=== PATIENT | female | born 1935 | race Caucasian/White ===

== ENCOUNTER 2017-01-11 20:22 | Emergency (ER) | payer OTHER, MEDICARE ==
[~2017-01-11 20:22] MED LIST: APAP650 PO; ASPIR 8181 MG PO; B-12 DOTS500 MCG PO; BYSTOLIC2.5 MG PO; CANASA1000 MG RECTAL; CO Q-10100 M1 PO; DIOVAN 80 MG TA80 M1 PO; LEVOTHYROXINE500 MCG PO; LEXAPRO 10 MG T10 M1 PO; LIPITOR10 MG PO; MAGOX 400400 MG PO; OMEGA-31000 M1 PO; UNICOMPLEX M TA1 TA1 PO
== END 2017-01-11 21:35 | disposition left against medical advice (07) ==
LOC: ER 20:22
DX: Z53.21 Procedure and treatment not carried out due to patient leaving prior to being seen by health care provider (principal)

== ENCOUNTER 2017-08-06 02:36 | Emergency (ER) | payer OTHER, MEDICARE ==
[~2017-08-06] VITALS: Ht 167.6 cm; Wt 78.0 kg
[2017-08-06 05:00] LABS: BASOPHILS 0.4 % (0.0-2.0); EOSINOPHILS 0.2 % (0.0-3.0); HEMATOCRIT 39.1 % (37.0-47.0); HEMOGLOBIN 13.3 gm/dL (12.0-15.0); LYMPHOCYTES 16.8 % (24.0-44.0); MCH 28.9 pg (26.0-34.0); MCHC 34.1 g/dL (28.0-37.0); MCV 84.7 fL (80.0-100.0); MONOCYTES 8.3 % (1.0-8.0); PLATELET COUNT 150 thou/uL (150-400); POLYS 74.3 % (36.0-66.0); RBC 4.62 mil/uL (4.20-5.00); RDW 13.8 % (10.5-14.5)
[2017-08-06 05:09] LABS: CALCIUM 8.4 mg/dL (8.5-10.1); CREATININE 1.1 mg/dL (0.6-1.0); POTASSIUM 3.9 mmol/L (3.5-5.1)
[2017-08-06] MEDS ORDERED: LEVAQUIN 500 M500 M1 PO (05:22)
[2017-08-06 05:58] VITALS: BP 126/56
== END 2017-08-06 05:58 | disposition home or self-care (01) ==
LOC: ER 02:36
PROVIDERS: Emergency Medicine
DX: J18.8 Other pneumonia, unspecified organism (principal); J06.9 Acute upper respiratory infection, unspecified; K51.90 Ulcerative colitis, unspecified, without complications; E78.00 Pure hypercholesterolemia, unspecified; I10 Essential (primary) hypertension; Z88.8 Allergy status to other drugs, medicaments and biological substances; Z88.1 Allergy status to other antibiotic agents; Z88.5 Allergy status to narcotic agent; Z88.0 Allergy status to penicillin; Z88.2 Allergy status to sulfonamides; Z91.011 Allergy to milk products

== ENCOUNTER 2018-02-17 07:15 | Emergency (ER) | payer OTHER, MEDICARE ==
[~2018-02-17] VITALS: Ht 167.6 cm; Wt 76.2 kg
[~2018-02-17 07:15] MED LIST changes: +LEVAQUIN 500 M500 M1 PO
[2018-02-17] MEDS ORDERED: ELIMITE60 GM TOP (08:33)
[2018-02-17] MEDS ORDERED: CLEOCIN HCL150 MG PO (08:33)
== END 2018-02-17 09:11 | disposition home or self-care (01) ==
LOC: ER 07:15
DX: R21 Rash and other nonspecific skin eruption (principal); I10 Essential (primary) hypertension; E78.00 Pure hypercholesterolemia, unspecified; Z90.49 Acquired absence of other specified parts of digestive tract; Z88.1 Allergy status to other antibiotic agents; Z88.5 Allergy status to narcotic agent; Z88.0 Allergy status to penicillin; Z88.2 Allergy status to sulfonamides; Z88.8 Allergy status to other drugs, medicaments and biological substances

== ENCOUNTER 2018-07-09 08:15 | Emergency (ER) | payer OTHER, MEDICARE ==
[~2018-07-09] VITALS: Ht 167.6 cm; Wt 65.3 kg
[~2018-07-09 08:15] MED LIST changes: +CLEOCIN HCL150 MG PO; +ELIMITE60 GM TOP
[2018-07-09] MEDS ORDERED: MOBIC7.5 MG PO (11:32)
[2018-07-09 11:52] VITALS: BP 102/50
== END 2018-07-09 11:55 | disposition home or self-care (01) ==
LOC: ER 08:15
DX: S82.61XA Displaced fracture of lateral malleolus of right fibula, initial encounter for closed fracture (principal); I10 Essential (primary) hypertension; E78.00 Pure hypercholesterolemia, unspecified; Z88.8 Allergy status to other drugs, medicaments and biological substances; Z88.1 Allergy status to other antibiotic agents; Z88.5 Allergy status to narcotic agent; Z88.0 Allergy status to penicillin; Z88.2 Allergy status to sulfonamides; Z90.49 Acquired absence of other specified parts of digestive tract; Z90.710 Acquired absence of both cervix and uterus; W18.39XA Other fall on same level, initial encounter; Y92.009 Unspecified place in unspecified non-institutional (private) residence as the place of occurrence of the external cause; Y93.89 Activity, other specified; Y99.8 Other external cause status

== ENCOUNTER 2019-02-15 11:29 | Emergency (ER) | payer OTHER ==
[~2019-02-15] VITALS: Ht 167.6 cm; Wt 77.1 kg
[~2019-02-15 11:29] MED LIST changes: +MOBIC7.5 MG PO
[2019-02-15] MEDS ORDERED: ANTIVERT25 MG PO (12:59)
[2019-02-15 13:07] VITALS: BP 133/84
== END 2019-02-15 13:07 | disposition home or self-care (01) ==
LOC: ER 11:29
DX: H55.00 Unspecified nystagmus (principal); I10 Essential (primary) hypertension; E78.00 Pure hypercholesterolemia, unspecified; Z87.891 Personal history of nicotine dependence; Z88.8 Allergy status to other drugs, medicaments and biological substances; Z88.5 Allergy status to narcotic agent; Z88.0 Allergy status to penicillin; Z88.2 Allergy status to sulfonamides; Z90.49 Acquired absence of other specified parts of digestive tract; Z90.710 Acquired absence of both cervix and uterus

== ENCOUNTER 2020-05-06 14:18 | Inpatient (IN) | payer OTHER, MEDICARE ==
[~2020-05-06] VITALS: Ht 167.6 cm; Wt 78.1 kg
[2020-05-06 14:18] VITALS: BP 154/65
[~2020-05-06 14:18] MED LIST changes: +ANTIVERT25 MG PO
[2020-05-06 15:21] LABS: ABSOLUTE NEUTROPHILS 4.5 thou/uL (1.4-8.2); BASOPHILS 1.1 % (0.0-2.0); EOSINOPHILS 1.8 % (0.0-3.0); HEMATOCRIT 41.5 % (37.0-47.0); HEMOGLOBIN 14.1 gm/dL (12.0-15.0); LYMPHOCYTES 21.1 % (24.0-44.0); MCH 28.3 pg (26.0-34.0); MCHC 33.9 g/dL (28.0-37.0); MCV 83.4 fL (80.0-100.0); MONOCYTES 6.8 % (1.0-8.0); PLATELET COUNT 214 thou/uL (150-400); POLYS 69.2 % (36.0-66.0); RBC 4.98 mil/uL (4.20-5.00); WBC 6.4 thou/uL (4.0-11.0)
[2020-05-06 15:31] LABS: URINE BILIRUBIN NEGATIVE (Negative); URINE BLOOD 3+ (Negative); URINE CLARITY CLEAR; URINE COLOR YELLOW; URINE GLUCOSE-RANDOM* NEGATIVE (Negative); URINE KETONES NEGATIVE (Negative); URINE NITRITE-REFLEX NEGATIVE (Negative); URINE PROTEIN (DIPSTICK) NEGATIVE (Negative); URINE SPECIFIC GRAVITY 1.025 (1.005-1.035); URINE UROBILINOGEN 0.2 E.U./dl (0.2-1.0)
[2020-05-06 15:42] LABS: CALCIUM 8.6 mg/dL (8.5-10.1); CREATININE 1.1 mg/dL (0.6-1.0); POTASSIUM 3.7 mmol/L (3.5-5.1)
[2020-05-06 15:51] LABS: URINE LEUKOCYTES-REFLEX 1+ (Negative)
[2020-05-06 15:53] LABS: ALBUMIN 3.9 g/dL (3.4-5.0); MAGNESIUM 2.1 mg/dL (1.8-2.4); TOTAL BILIRUBIN 0.5 mg/dL (0.2-1.0); TOTAL PROTEIN 8.1 g/dL (6.4-8.2)
[2020-05-06 15:55] LABS: BACTERIA-REFLEX 1-9 Few /HPF (None Seen); CASTS None Seen /LPF (None Seen); CRYSTALS None Seen /LPF (None Seen); SQUAMOUS 0-3 Few /LPF (0-3); URINE RBC 3-10 Few /HPF (0-2); URINE WBC-REFLEX 6-15 Few /HPF (0-5)
--- NOTE | 2020-05-07 03:10 | NUR ---
SPOKE WITH LAB R/T COVID-19 RESULTS- LAB REPORTED "THEY ARE RUNNING RIGHT NOW IT STARTED AT 0045 AND SHOULD BE DONE SHORTLY."
--- NOTE | 2020-05-07 07:45 | EKG ---
[facility] [place] [address] ELECTROCARDIOGRAM REPORT Name: DESHAWN MONAHAN Room #: 170-8 ADM IN M.R.#: [id number] Admission: 05/06/20 Attend Phys: Zeb Moscoso DO Discharge: Date of : 35 Report #: [id number] THIS REPORT FOR: cc: Marty Cullen MD, Rene P. MD Lundgren, Craig H. MD [facility] ~ THIS REPORT FOR: //name// [facility] ED Test Date: 2020-05-06 Test Time: 15:33:58 Pat Name: DESHAWN MONAHAN Department: Room: 170 Gender: F Green Belt: ts : 1935 Requested By: Miguel Kirby Order Number: [id number] MD: Giorgio Rader Measurements Intervals [place] Rate: 66 P: 10 FL: 239 QRS: -20 QRSD: 109 T: 7 QT: 432 QTc: 453 Interpretive Statements Sinus rhythm Prolonged FL interval Borderline left axis deviation Compared to ECG 12/05/2017 21:12:09 Ventricular premature complex(es) no longer present Electronically Signed On 05-07-2020 7:45:48 CDT by Giorgio Rader [email or web address] <ELECTRONICALLY SIGNED> By: Giorgio Rader MD, FACC 05/07/20 0745 1533 [id number] Giorgio Rader MD, FAC /EPI
[2020-05-07 07:50] VITALS: BP 141/68
--- NOTE | 2020-05-07 16:27 | NUR ---
KAREN spoke with pt's son Miah. He does not have much information about his mother as she has estranged herself from her family; he has not been in her home in a long time. He said that now he has her car keys he is planning this weekend to go into her home and look for info concerning her financials. He said she mentioned years ago that she may get a LTC policy. He said he has been interested in placement for his mom for a few months, but she has refused. He will begin to look for a guardianship generating station mechanic as she does not have a DPOA. He said he also will be in [place] for a week or so as his and daughter live there; they are buying a home there. He said he will be available by phone. Pt does have another son named Pio who lives in [facility]. He may have DPOA. He is looking for the document. SW team will continue to follow pt during her stay on this unit.
--- NOTE | 2020-05-07 18:00 | NUR ---
Per Dr. Moscoso pt. is on High Fall Risk. patient was wobbily earlier in the AM. As day has progressed has gotten increasingly steadier on feet. She does not want to use the walker provided for her. Bed alarm placed on the bed, Yellow shirt, yellow socks provided. Two upper side rails raised. Red name on outside of door. Instructed to sit/lie down if felt dizzy or unsteady on feet. Compliant with med for UTI. Eating meals-self feeding.
[2020-05-07 18:15] VITALS: BP 134/69
--- NOTE | 2020-05-07 18:30 | NUR ---
Addendum: Admission Note: Allergies per Dr. Talley's notes: Atropine, Clarithromycin, Codeine, Diphenoxylate Sodium, Macrolide Antibiotics, Penicillins, Sulfa antibiotics. Home meds: Atorvastatin 10 mg. daily, ASA 81 mg. chewable-daily, Cyanocobalamin 500 mcg daily, Escitalopram 5 mg. daily, Levothyroxine 100 mcg daily, Magnesium Oxide 400 mg. daily, MVI w/Iron and minerals 1 tab daily, nebivolol HCL 2.5 mg BID. [place] 3 Fatty Acids 2,000 mg daily, Levofloxacin 500 mg daily. Currently has Dx. Dementia, Hypothyroidism, HTN, High Cholesterol, Hx Ulcerative Colitis, Choly 1966, Colon out 1961, Hysterectomy 1981.
[2020-05-07 19:48] VITALS: BP 123/45
--- NOTE | 2020-05-08 01:46 | NUR ---
Care assumed of patient at 1915: Patient laying in bed at start of shift. Patient awake, smiling, very happy. Alert and oriented to person and time. Disoriented on situation and location. Patient hyperverbal, grandiose ideas. Spoke of driving to a place that was "red, large, had several antiques with things you could buy, a lot of nice welcoming people". Originally declined getting lost while driving and became frustrated when this was stated. Shortly after patient admitted to getting lost. Patient declined HS snack. Took HS medication whole without difficulty. Ambulated with SBA to bathroom with FWW, steady gait, good balance. Patient thanked nurse for "stopping by" and to have a great day. Required re-orientation several times on the time of the day and location. Patient denies SI/HI/AH/VH. When asked if patient was feeling anxious, patient stated "oh, you know", dismissing question asked. When asked if patient was feeling depressed, patient then asked nurse "are you?". Avoidant of assessment questions. After giving HS medication, patient asked nurse if she was going to take her night time medicine. Patient pleasantly confused. Patient isolated self to her room this shift. Patient was able to fall asleep without difficulty and is resting quietly at this time.
[2020-05-08 07:39] VITALS: BP 113/50
--- NOTE | 2020-05-08 09:32 | NUR ---
Assumed care 0700. Self-fed breakfast. She is reluctant to take her meds even though meds were explained to her. She does not want to use the walker, she feels she is much steadier today than yesterday. She said she would use the siderails on the side of the hallway and not use the walker then when observed she was not using the siderail to ambulate the hallway. She was exuberent in greeting this nurse this morning. Patient later said she thought she was taking way too many medications, was concerned about potential adverse reactions. Patient was reassured nursing and hospitalist staff were vigilant watching for any possible side effects/adverse reactions with her medications. She is preferring to have B12 injection after group. She denies SI/HI/AH/VH. No reported c/o pain.
--- NOTE | 2020-05-08 13:55 | NUR ---
While the stories this patient relays may be grounded in facts, there is a feeling of grandiose delusions and forgetfulness. During RT afternoon group she signaled this nurse to come over to her and she wanted to know if this writer editor wanted her for medication-which was not the case. She was an active participant in RT then retreated to her room afterwards.
[2020-05-08 19:46] VITALS: BP 159/89
--- NOTE | 2020-05-08 23:47 | NUR ---
Care assumed of patient at 1915: Patient pacing the snyder at start of shift. Demanding a new room, stating that she is afraid and people won't leave her alone. Peer observed going into this patient's room, drop off a blanket then leave. This patient was heard screaming. Patient then started to yell that people are after her to kill her, she wants to get out and needs to go home. Patient presents with a suspicious/perplexed affect. Startles easily. Patient was only alert and oriented to person at this time. Confused and forgetful. Attempted to orient patient to being in the hospital and this nurse has cared for her the last 2 nights. Patient was not able to remember this nurse. Patient resistive to taking medications. Patient reported she didn't want to be "poisoned so the lady can come in and murder me". Nurse was able to slowly re-orient patient and educate her on medications. Patient did take medications but quickly forgot that she had taken medications and what they were for. Patient declined HS snack. Isolated self to room most of the night. Patient was able to fall asleep without difficulty and is resting quietly at this time.
[2020-05-09 07:50] VITALS: BP 147/68
--- NOTE | 2020-05-09 10:00 | NUR ---
Assumed care 0700. Upset by all the meds she was taking=many in the AM. Meds many are vitamins. Alert to person, date, time of day, not place. Denies SI/HI/AH/VH. Is paranoid that the meds will make her nauseated--she laid down immediately after breakfast. HOB was elevated, no actual nausea or vomiting. She does not socialize. Needs to be reminded to attend groups. Wanted and expected staff to produce a new hearing aid battery. None was found. Staff did not have time to call or attempt to call son for battery. Patient does not know son's phone number. She has a right hearing aid only.
[2020-05-09 19:49] VITALS: BP 159/45
--- NOTE | 2020-05-10 02:58 | NUR ---
ASSUMDED PT CARE AROUND 1940. VERY [place]CU[place] YAQUI. DOES FOLLOW COMMANDS APPROPRIATELY AFTER SEVERAL TRIES IN LEFT EAR. VSS. NO S/S ACUTE DISTRESS NOTED OR REPORTED AT THIS TIME. WILL CONT TO MONITOR FOR ANY CHANGES IN CONDITION.
[2020-05-10 07:46] VITALS: BP 111/67
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
--- NOTE | 2020-05-10 15:20 | NUR ---
KAREN contacted Miah to follow-up on guardianship and any progress. No answer. KAREN left [facility]. SW team will continue to follow pt during his stay on this unit.
--- NOTE | 2020-05-10 16:51 | NUR ---
ASSUMED CARE OF PT MID MORNING. VSS. PT DENIES SI/HI/AH/VH. PT UP WALKING AROUND THE UNIT WITH STEADY GAIT. PT TOLERATES MEDS AND MEALS. PT ATTENDED GROUPS AND INTERACTS WELL WITH STAFF AND PEERS. PT SLOWLY PROGRESSING TOWRADS POC GOALS.
[2020-05-10 19:31] VITALS: BP 116/60
[2020-05-10 20:06] LABS: SYPHILIS AB Non Reactive (Non Reactive)
[2020-05-11 02:17] VITALS: BP 116/60
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
[2020-05-11 08:15] VITALS: BP 126/62
--- NOTE | 2020-05-11 08:54 | NUR ---
PT IN ROOM THIS AM. PT REFUSED TO EAT BREAKFAST DUE TO HAVING X3 DIARRHEA TODAY. PT ABLE TO WALK FROM BED TO BATHROOM WITH STEADY GAIT. PT DID TAKE MEDS WITH FRESH WATER. GAVE PT YOGART FOR HER STOMACH. PT DENIES ANY PAIN.
[2020-05-11 09:19] VITALS: BP 126/62
--- NOTE | 2020-05-11 10:51 | NUR ---
KAREN received a call from Miah who said they found DPOA docs; Pio is DPOA. They also found docs for LTC insurance. KAREN and Miah scheduled a family meeting for Pio and Dr Moscoso to also attend at 12pm today. SW team will continue to follow pt during her stay on this unit.
--- NOTE | 2020-05-11 13:41 | NUR ---
ADM LOPERAMIDE 15ML PO FOR COMPLAINTS OF DIARRHEA.
--- NOTE | 2020-05-11 16:15 | NUR ---
PT DENIES HAVING ANY MORE DIARREAH. PT HAVING TROUBLE WITH HER HEARING AID. PUT AN NEW BATTERY IN THE HEARING AID, STILL NO DIFFERENT OF SOUND PER PATIENT.
[2020-05-11 19:35] VITALS: BP 125/63
--- NOTE | 2020-05-12 03:39 | NUR ---
Assumed pt's care this pm shift. Pt alert and orientet to self. Confused. Forgetful. Pt was in her room at time of assessment. Pt denies SI/HI. Pt was calm and cooperative with assessment. Pt had HS snacks. Meds given per emar. Pt sleeping in her room. Fall precautions in place. Will continue to monitor.
[2020-05-12 07:27] VITALS: BP 124/62
--- NOTE | 2020-05-12 11:00 | NUR ---
Assumed care 0700. Patient denies pain, no SI/HI/AH/VH. She needed coaxing to get out to breakfast a little early. She has been reading the New Testament in her bed. She has not connected with anyone except the staff for conversation. After a lengthy conversation she wanted a calendar by her bed at home brought to her that had dates of DrYaquelin appointments on it she did not want to miss or that might need rescheduling. Initially she had difficulty describing exactly that it was a calendar--not a box of papers or a cylinder. She supposedly has a right hearing aid here in house though location is unclear. the left hearing aid was to be brought here by son and to this RN's knowledge it is not here yet. both aids need batteries. Note batteries are in her locker.
--- NOTE | 2020-05-12 14:30 | NUR ---
RT Progress Note- Sherlyn has isolated to her room during times of unscheduled programming on the unit, however is accepting of group attendance when asked to do so. She provides full participation though she is limited in hearing d/t a hearing aid that is not working properly. This has caused a communication barrier. She is irritable at times but continues to show no aggression or extreme agitation with RT staff. RT staff will continue to encourage participation.
--- NOTE | 2020-05-12 18:30 | NUR ---
No acting out behaviors this shift. No delusional talk. Note this nurse has not had any lengthy conversation with this pt. either. She is content to read the Bible in her room. No reported BM today. She remains forgetful, confused, cooperative, neat, pleasant. Did not go into drilling nurse what and why of each medication as she has done before.
[2020-05-12 19:49] VITALS: BP 149/71
--- NOTE | 2020-05-12 22:57 | NUR ---
Care assumed of patient at 1915: Patient seated in the dayroom at start of shift. Appears to be interacting well with other peers. Alert and oriented to person only. Pleasantly confused. Denies pain and discomfort. Denies SI/HI/AH/VH. No delusional or paranoia behaviors observed. Remains on PO Abx for UTI. No s/s of adverse effects noted at this time. Patient took HS medication whole without difficulty. Ate 100% HS snack. Patient was able to remember that she needed to use a walker and was looking for it. Nurse assisted patient and she was grateful. Jun was able to retire to bed without difficulty and is resting quietly at this time.
[2020-05-13 07:38] VITALS: BP 124/65
--- NOTE | 2020-05-13 14:25 | NUR ---
KAREN received an email from Miah requesting SW sent referrals to the following: [facility] (in [place] or [facility]) - Did not receive an answer. Could not obtain fax number. [facility] - referral sent 05/13 [facility] - referral sent 05/13 [facility] - referral sent 05/13 [facility] - referral sent 05/13 [facility] - referral sent 05/13 SW team will continue to follow pt during her stay on this unit.
--- NOTE | 2020-05-13 18:02 | NUR ---
Alert and orientated to name only. Lots of coherent speech with some confusion. Denies SI/HI. Unable to recall day or place. Reg HR auscultated. Color pink with brisk capillary refill and palpable peripheral pulses. Reg steady gait. Refuses to use walker despite reminders. Spent alot of time in room today, out for meals. Breath sounds clear. Reg HR auscultated. Color pink with brisk capillary refill and palpable peripheral pulses. Independent with voiding. Active bowel sounds over soft, rounded abdomen. Currently ambulating in halls with walker.
[2020-05-13 19:54] VITALS: BP 112/55
[2020-05-13 22:15] VITALS: BP 112/55
--- NOTE | 2020-05-14 02:03 | NUR ---
Assumed care of patient this pm shift. Patient in good spirits. Patient is alert and oriented to self. Patient denies pain. Patient denies hi/si. Patient takes medications whole with thin fluids. Patient is medication adherent. Patient walks with a steady gait. Patient is continent. Patient did not voice any comments or concerns. We will continue to monitor per hospital policy.
[2020-05-14 07:20] VITALS: BP 120/67
--- NOTE | 2020-05-14 14:09 | NUR ---
PATIENT WAS IN ROOM AWAKE WHEN CARE ASSUMED. PATIENT AMBULATES WITH ASSIST OF ROLLER WALKER, GAIT SLIGHTLY UNSTEADY. PATIENT TOOK ALL MEDICATION WHOLE WITHOUT DIFFICULTY. PATIENT IS EATING MEALS, AND DRINKING FLUID FAIRLY WELL. PATIENT IS HARD OF HEARING, ASSESSMENT COMPLETED BY WRITING ON A PIECE OF PAPER. PATIENT DENIES SUICIDAL IDEATION, SHE RATED DEPRESSION 2/10, FOR ANXIETY, PATIENT STATES "AM NOT ANXIOUS LONG EVERYONE IS WHO THEY ARE". PATIENT DENIES HAVING PHYSICAL PAIN. AFFECT IS FLAT/BLUNTED, MOOD IS EUTHYMIC. NO SIGN OF ACUTE DISTRESS NOTED AT THIS TIME, WILL MONITOR FOR SAFETY.
--- NOTE | 2020-05-14 17:04 | NUR ---
KAREN informed Miah that two pts on the unit tested positive for COVID and have been evacuated from the unit. KAREN further explained pt tested negative and will continue to be monitored until discharge. Pt will receive another COVID test prior to discharge. Miah expressed no concern at this time. KAREN team will continue to follow.
[2020-05-14 19:37] VITALS: BP 118/46
--- NOTE | 2020-05-15 03:23 | NUR ---
Assumed care of pt @ 1900. Pt calm et cooperative with [facility] demeanor this shift. Took medications whole without difficulty. Ambulates the halls with assistance of walker with steady gait. Socialized with peers in dayroom until HS. VSWNL. Health assessment with no abnormalities noted at present time. Pt able to deny SI/HI/AVH through written question as hearing aide currently unavailable. Currently resting in bed with eyes closed. Will continue to monitor per protocol.
[2020-05-15 07:20] VITALS: BP 150/56
[2020-05-15 09:20] VITALS: BP 139/57
--- NOTE | 2020-05-15 14:45 | NUR ---
Alert and orientated X 3 although she did need alot of time and encouragement to recall info. Denies SI/HI. Up ambulating with walker with regular gait. Calm, cooperative and compliant. Participating in groups. Breath sounds clear. Reg HR auscultated. Color pink with brisk capillary refill and palpable peripheral pulses. Independent with voiding. She thinks she had a BM yesterday. Took milk of magnesia w/o diff. Refused prune juice. Active bowel sounds over soft, rounded abdomen.
[2020-05-15 19:36] VITALS: BP 91/48
--- NOTE | 2020-05-16 03:52 | NUR ---
05-15-20 CARE TRANSFERRED 1899 OBSERVED PT WALKING IN HALLWAY. 2019 PT SITTING IN BED WITH EYES OPEN, AAOX3, VSS, RR EVEN AND NONLABORED ON RA. PT REPORTS SHE HAS SOMEONE TO STAY WITH HER AT HER HOME. PT VERY CONVERSATIONAL ON HER SITUTATION AND THAT SHE HAS NEVER BEEN PLACED SOMEHWERE WERE SHE COULD NOT LEAVE. PT REMAINED CALM AND COOPERATIVE AND RECEPTIVE TO INPUT. PT DENIES PAIN AND SI/HI. DURING MEDICATION ADMIN PT HAD NO DIFFICULTIES. LATER ASSISTED PT WITH BED ADJUSTMENT FOR COMFORT, BED LOWEST POSITION, LOCKED AND ALARM ON. ZERO S/S OF ACUTE DISTRESS NOTED, PT WILL CONTINUE TO BE MONITOR PER [facility] PROTOCOL.
[2020-05-16 07:00] VITALS: BP 104/52
[2020-05-16 07:46] VITALS: BP 104/52
--- NOTE | 2020-05-16 17:40 | NUR ---
Patient has been cooperative/compliant with meals and medications. Micaela denies SI/HI/AH/VH and has not displayed any concerning acting out behaviors indicative of such. She is interested in where she will be living and what it will be like. She was recommended to talk with her SW about this. She is [place] and was not using her hearing aid the right one this RN saw several days ago in her ear. Between groups she goes to her room to read the New Testament. She was not seen interacting with any of the peers. She was compliant using her walker today. Due to the football game the afternoon groups were not held for RT and SW. No voiced complaints of pain or discomfort. No reported BM yet this shift. She has a pleasant disposition, is respectful and courteous to staff.
[2020-05-16 19:25] VITALS: BP 135/54
--- NOTE | 2020-05-16 20:30 | NUR ---
Assumed care on 05/16/20 @ 1900, seated in the day room, ambulating ad patrizia throughout the mileu. Cooperated with assessment, HRRR, Lungs CTA, ABD N x 4 Q. Reports x2 BM today. Will continue to monitor as per unit protocol.
[2020-05-16 23:02] VITALS: BP 135/54
--- NOTE | 2020-05-16 23:09 | NUR ---
Refused Bystolic, saying that her heart was skipping a beat. Encouraged ot take Haldol, and Tums, which she did. HR 72 135/54 R 20, 98.4 92%. No irregular pulse noted, will continue to observe.
--- NOTE | 2020-05-17 06:34 | NUR ---
Slept 7.2 hours overnight.
[2020-05-17 07:56] VITALS: BP 126/52
--- NOTE | 2020-05-17 13:58 | NUR ---
KAREN emailed both [facility] and [facility] concerning Pt's hearin aids. IN the emails Sw informed Pt has both hearing aids and neither is working. KAREN also requested an email or phone call back concerning placement choice. KAREN will continue to follow.
--- NOTE | 2020-05-17 14:02 | NUR ---
KAREN contacted [facility] concerning placement. [facility] confirmed they have accepted the Pt but need to speak with the Pt's DPOA. KAREN provided [facility] the emails for [facility] and Miah. KAREN informed Pt is ready for discharge this week. [facility] requested clinical notes on Pt. KAREN faxed clical noted to [facility] at [phone]
--- NOTE | 2020-05-17 14:16 | NUR ---
Assess for length of stay. Admit to [facility] with dementia. Pt in group therapy at this time so unable to interview. Chart reviewed, has been eating 50-100% most meals. Wts stable 165-170 lb. B12 levels are low 212 and on supplementation as well as vitamin D supplementation. Low nutrition risk
--- NOTE | 2020-05-17 17:08 | NUR ---
DESCRIBES MOOD "CRISTIN BORED" AND STATES SHE IS NOT SURE WHY SHE IS AT HOSPITAL WHEN ASKED. DENIES ACUTE ANXIETY-DENIES SI/SH/HI OR FEELINGS OF DEPRESSION-DOES ACKNOWLEDGE FEELING "FRUSTRATED" AND "IRRITABLE" AT TIMES BUT UNABLE TO ID TRIGGER/PRECIPITANT. GAIT IS STEADY WITH USE OF ROLLER WALKER. MINIMAL INTERACTION WITH PEERS-SITS AWAY FROM OTHERS AT MEALTIME AND GROUP. IS PLEASANT WITH NURSING STAFF-ALTHOUGH SUPERFICIAL/GUARDED. AFFECT CONSTRICTED. ABRUPT AT TIMES WITH REQUESTS. NO NOTED/REPORTED PSYCHOSIS/A/V HALLUCINTATIONS.
[2020-05-17 20:03] VITALS: BP 108/70
[2020-05-17 22:35] VITALS: BP 108/70
--- NOTE | 2020-05-18 01:28 | NUR ---
Assumed care of patient this pm shift. Patient in good spirits. Patient is very hard of hearing. Patient is alert and oriented x2 to person and place. Patient denies pain. Patient denies hi/si. Patient takes medications whole with thin liquids. Patient is considered a falls risk and needs encouragement to utilize her walker. Patient shows no signs of acute distress. Vital signs are stable. Patient did not voice any concerns this evening. We will continue to monitor per hospital policy.
[2020-05-18 08:47] VITALS: BP 118/52
--- NOTE | 2020-05-18 14:26 | NUR ---
Pt completed assessmetn with AMRY JANE Hatfield at [facility]
--- NOTE | 2020-05-18 15:55 | NUR ---
Assumed care of patient at 0700. Up ad patrizia with walker. Gait steady. Remains on Fall Precautions. Oriented to place, person, situation. Very hard of hearing which impacts communication. Cooperative with care. Continent of bowel and bladder. Euthymic. Pleasant when approached. participating in groups and patient activities.
--- NOTE | 2020-05-18 16:05 | NUR ---
KAREN sent new referrals to the following: [facility]
--- NOTE | 2020-05-18 16:06 | NUR ---
The Pt [facility] has not made a decision on placement. KAREN sent an email on to [facility] asking for a decision by close of business on 05/19/2020.
[2020-05-18] MEDS ORDERED: RISPERDAL 1 MG T1 MG PO ×2 (17:26→17:27)
[2020-05-18] MEDS ORDERED: COZAAR 50 MG TA50 M1 PO (17:26)
[2020-05-18] MEDS ORDERED: NAMENDA 5 MG TAB5 M1 PO (17:27)
[2020-05-18] MEDS ORDERED: CALTRATE-600 W1 EACH PO (17:28)
[2020-05-18] MEDS ORDERED: VITAMIN D325 MC1 PO (17:28)
[2020-05-18 19:32] VITALS: BP 104/45
--- NOTE | 2020-05-18 21:21 | NUR ---
ASSUMED CARE FROM DAY SHIFT PT RESTING IN BED , INFORMED PT OF TRANSFER TO UNIT 4W ROOM 452 PT AGREEABLE PO MEDICATION GIVEN , REPORT CALLED TO DEANDRA RN, PT CALM AND STABLE TO TRANSFER.
[2020-05-18] MEDS ORDERED: NAMENDA 10 MG T10 MG PO (23:32)
[2020-05-18] MEDS ORDERED: TYLENOL325 MG PO (23:35)
--- NOTE | 2020-05-19 23:24 | D ---
[facility] [place] [address] DISCHARGE SUMMARY Name: DESHAWN MONAHAN Room #: 522A-A [facility] IN M.R.#: [id number] Admission: 05/06/20 Attend Phys: Zeb Moscoso DO Discharge: 05/18/20 Date of : 35 Report #: [id number] THIS REPORT FOR: cc: Marty Cullen MD, Rene P. MD Kerstein, Andrew H. DO ~ THIS REPORT FOR: //name// CC: Zeb Cullen DATE OF SERVICE: 05/18/2020 INPATIENT PSYCHIATRIC DISCHARGE SUMMARY ATTENDING PSYCHIATRIST: Zeb Moscoso DO. STORE TEAM MEMBER: Zeb Ramirez MD DISCHARGE DIAGNOSES: Major neurocognitive disorder, likely due to Alzheimer's disease, but behavioral disturbance improved. MEDICAL COMORBIDITIES: Include hypothyroidism, UTI, positive for Enterococcus, successfully treated with nitrofurantoin. DISCHARGE PLAN: The patient is discharging to the fourth floor medical unit at [facility]. The patient will be managed by the hospitalist service there. She is being discharged there due to the COVID-19 epidemic. PSYCHIATRIC DIAGNOSIS: She does have a history of depression, so we elected to continue the escitalopram. DISCHARGE MEDICATIONS: Losartan 50 mg p.o. daily, risperidone 1 mg p.o. b.i.d. at 9:00 a.m. and 9:00 p.m., risperidone 1 mg p.o. at 1600 hours for owning; memantine, currently in titration for this, can increase to 5 mg p.o. b.i.d. on the medical floor, then 5 mg morning and 10 mg at evening after 1 week, then 5 mg p.o. b.i.d., then after 1 week of the 5 and 10, can go to 10 mg p.o. b.i.d.; calcium carbonate with vitamin D3 three times a day. Also, cholecalciferol 5000 International Units p.o. daily, atorvastatin 10 mg p.o. daily for hyperlipidemia, aspirin 81 mg p.o. daily for heart protection, vitamin B12 100 mcg p.o. daily for supplementation, Lexapro 5 mg p.o. daily for depression, levothyroxine 100 mcg p.o. daily for hypothyroidism, magnesium 400 mg p.o. daily, multivitamin 1 tab p.o. daily, nebivolol 2.5 mg p.o. b.i.d. LABORATORY DATA: Significant laboratories from this admission are as follows: Microbiology for the Enterococcus faecalis, general laboratories include on the [address] [address] DISCHARGE SUMMARY Name: OTTODESHAWN JUAREZ Room #: 522A-A [facility] IN M.R.#: [id number] Admission: 05/06/20 Attend Phys: Zeb Moscoso DO Discharge: 05/18/20 Date of : 35 Report #: [id number] hemogram H and H 14.1 and 41.5, white count 6.4, platelets 214. Chemistries: Grossly normal including sodium 140, potassium 3.7, chloride 104, bicarbonate 24, anion gap 17, BUN 16, creatinine 1.0, estimated GFR 47, glucose level hovering around 100. Other pertinent laboratories magnesium 2.1, AST 22, ALT 28. Troponin not tested on this admission. Albumin 3.9. Vitamin D slightly low at 25.7, TSH 0.766. COVID-19 PCR serology was checked and was negative. Syphilis serology was negative. We did do some dementia labs, her B12 was 212, which was low while it has been replaced. I reviewed the vitamin D. Head CT was done in the ER and read as negative. Upon my inspection, there was frontal atrophy. Chest x-ray this admission was negative. REASON FOR ADMISSION: Back around 05/06/2020, an 84-year-old female brought to the ED secondary to altered mental status. She had been found in a parking lot at [employer], authorities were called. Evidently, she had driven there. HOSPITAL COURSE: The patient was admitted to Geriatric Psychiatry Unit. The patient's son Miah had noticed some progressive memory problems. The patient scored in the single digit, in 8/30 on [facility] Mental Status Examination, felt this was too low score to warrant neuropsychological testing given her age and clinical history. The patient does require memory care placement. Her sons are entertaining [facility] for this at time of discharge to medical unit. PHYSICAL EXAMINATION: VITAL SIGNS: At time of discharge, temperature 36.7, pulse 65, respirations 20, BP 104/45, O2 sat 95%. MUSCULOSKELETAL: Normal gait and station. MENTAL STATUS EXAMINATION: I have seen through televideo. This is a well-developed, fairly nourished female, wearing a hospital gown, using a mask. Attention fair. Concentration fair. The patient is hard of hearing. Speech is normal, rate, rhythm, tone. Thought process: Linear and goal oriented. Thought content, fair poverty. No psychomotor agitation, no psychomotor retardation. Denied SI or HI. Denied hopelessness, helplessness. Denied auditory, visual or tactile hallucinations. Memory known to be impaired. Insight limited. Judgment limited. Fund of knowledge below average at this point. [facility] [address] [place] [address] DISCHARGE SUMMARY Name: HERODESHAWN Sandra Room #: 522A-A [facility] IN M.R.#: [id number] Admission: 05/06/20 Attend Phys: Zeb Moscoso DO Discharge: 05/18/20 Date of : 35 Report #: [id number] PROGNOSIS: For this patient is guarded given her neurodegenerative disorder and age of 84. <ELECTRONICALLY SIGNED> By: Zeb Moscoso DO 05/19/20 [id number] Zeb Moscoso DO /nt
== END 2020-05-18 21:39 | disposition short-term general hospital (02) | DRG 57 ==
LOC: ER 14:18 → EROBS 18:18 → SBH 18:18
PROVIDERS: Emergency Medicine; ADMIT Psychiatry & Neurology Psychiatry; ATTEND Psychiatry & Neurology Psychiatry
DX: G30.9 Alzheimer's disease, unspecified (principal); F01.51 Vascular dementia, unspecified severity, with behavioral disturbance; F02.81 Dementia in other diseases classified elsewhere, unspecified severity, with behavioral disturbance; N39.0 Urinary tract infection, site not specified; E78.00 Pure hypercholesterolemia, unspecified; E03.9 Hypothyroidism, unspecified; I10 Essential (primary) hypertension; B95.2 Enterococcus as the cause of diseases classified elsewhere; Z20.828 Contact with and (suspected) exposure to other viral communicable diseases; Z79.82 Long term (current) use of aspirin; Z79.899 Other long term (current) drug therapy; Z88.5 Allergy status to narcotic agent; Z88.0 Allergy status to penicillin; Z88.2 Allergy status to sulfonamides; Z88.8 Allergy status to other drugs, medicaments and biological substances; Z87.891 Personal history of nicotine dependence; Z90.710 Acquired absence of both cervix and uterus; I25.2 Old myocardial infarction; Z90.49 Acquired absence of other specified parts of digestive tract
CPT/HCPCS: 10880

== ENCOUNTER 2020-05-18 20:18 | Inpatient (IN) | payer OTHER, MEDICARE ==
[~2020-05-18] VITALS: Ht 167.6 cm; Wt 72.6 kg
[~2020-05-18 20:18] MED LIST changes: +CALTRATE-600 W1 EACH PO; +COZAAR 50 MG TA50 M1 PO; +NAMENDA 5 MG TAB5 M1 PO; +RISPERDAL 1 MG T1 MG PO; +VITAMIN D325 MC1 PO
--- NOTE | 2020-05-18 21:00 | NUR ---
Pt. was a transfer from [facility]. She is oriented to self and situation. Pt. is cooperative and offers no complaints at this time.
[2020-05-18 23:02] VITALS: BP 120/57
[2020-05-18] MEDS ORDERED: NAMENDA 10 MG T10 MG PO (23:32)
[2020-05-18] MEDS ORDERED: TYLENOL325 MG PO (23:35)
--- NOTE | 2020-05-19 05:20 | NUR ---
Pt. rested quietly during the night when checked on during frequent rounds. Admission assessment and history is completed at best as pt. is a poor historian and has some confusion. Bed alarm is on.
[2020-05-19 07:30] VITALS: BP 107/54
--- NOTE | 2020-05-19 08:27 | NUR ---
PT AWAKE THIS AM AND NEEDING TO USE BATHROOM. PT ABLE TO WALK TO BATHROOM WITH STEADY GAIT. PT STATED SHE HAS PROBLEMS WITH HEARING AID, SHE STATED THAT IT HAS BEEN 2 WEEKS SINCE SHE HAD IT WORKING. PT LUNGS CLEAR. PT ORIENTED TO PERSON AND PLACE. PT TOOK MEDS WHOLE WITH WATER. PT WEARING YELLOW MASK IN ROOM. PT DENIES ANY PAIN.
--- NOTE | 2020-05-19 13:21 | NUR ---
PT WAS TRANSFERED FROM [facility] HERE AT [facility]. PT'S SON MARCEL IS HER DPOA AND HE LIVES IN [facility]. SHE HAS A SON MARY WHO LIVES LOCALLY. SW ON [facility] HAS BEEN EMAILING WITH FAMILY REGARDING PLACEMENT OPTIONS. THEY HAVE INDICATED THAT THEY ARE INTERESTED IN TO GOING TO [facility]. THEY HAVE BEEN PROVIDED THE ADMISSIONS PERSONS'S INFO TO DISCUSS FINIANCIALS AND ADMISSION NEEDS. CM SPOKE JUSTA SCHULTZ AT [facility]ACILITY [facility]. THYE NEED A NEGATIVE COVID TEST 72HRS PRIOR TO ADMIT AND NEED TO DO A VIRTUAL ASSESSMENT WITH PT WHICH MIGHT BE DIFFICULT PT IS VERY [place]. CM FOLLOWING AND HOPEFULL THAT PT MAY BE ABLE TO DC BY END OF WEEK ALTHOUGH ANTOINE INDICATED THAT MIGHT BE A STRETCH....
--- NOTE | 2020-05-19 13:30 | NUR ---
PT WALKING AROUND ROOM WITH STEADY GAIT. PT PLEASED WITH UNIT. PT DOES WANT TO TALK TO CRIMINAL ATTORNEY AND SEE WHERE SHE WILL BE DISCHARGED.
--- NOTE | 2020-05-19 15:49 | NUR ---
THERE HAVE BEEN SUBSIQUENT EMAILS BETWEEN PT'S ARNOLD ROD AND MYSELF AND ANTOINE AT [facility]. ANTOINE AND MARCEL SPOKE AND THEY ARE ACCEPTING OF PT AND SON HAS INDICATED THAT THEY ARE ABLE TO MAKE FINIANCIAL ARRANGEMENTS BUT THAT IT WON'T BE IMEDIAT HE IS IN [facility]. THEY ARE HOLDING A ROOM IN [place] FOR PT BUT THEY WILL NOT BE ABLE TO ACCEPT HER LIKELY UNTIL NEXT WEEK. NURSE WILL REACH OUT TO SCHEDULE VIRTUAL ASSESSMENT THINGS PROGRESS. CM TO FOLLOW INDICATED WITH DC PLANNING.
--- NOTE | 2020-05-19 15:51 | NUR ---
PT RESTING WITH EYES CLOSED.
[2020-05-19 21:08] VITALS: BP 103/48
--- NOTE | 2020-05-20 05:02 | NUR ---
Pt. rested quietly during the night when checked on during frequent rounds. She offers no c/o pain or discomfort. Cooperative with cares. Pleasantly confused.
[2020-05-20 07:12] VITALS: BP 117/64
--- NOTE | 2020-05-20 12:15 | NUR ---
DANYELL SPOKE WITH ANTOINE IN ADMISSIONS AT [facility] THIS AM SHE INDICATED THAT MARCEL HAS A CHECK IN THE MAIL AND THAT DON WOULD BE REACHING OUT TO CM TO ARRANGE VIRTUAL ASSESSMENT OF PT. ANTOINE INDICATED THAT MOST UNFORTUNATLY PARTS MIGHT NOT FALL INTO PLACE UNTIL MIDDLE OF NEXT WEEK. CM TO ASSIST AND FOLLOW INDICATED.
--- NOTE | 2020-05-20 12:45 | NUR ---
Assumed pt care at 7am.Pt up adlib in the room with steady gait.Assessment completed.vss.Meds given with breakfast and well tolerated.Dr Lennon here and no new order noted.Fall bundle in place and room cleared of clusters and free of objects that can harm pt.No verbal c/o.Will continue to monitor.
[2020-05-20 15:02] VITALS: BP 104/55
[2020-05-20 20:29] VITALS: BP 106/50
--- NOTE | 2020-05-21 02:18 | NUR ---
PATIENT AOX3 CONFUSED AND FORGETFUL. PATIENT IS HARD OF HEARING. PATIENT DENIED ALL PSYCH ISSUES. PATIENT HAD A FLAT AFFECT, POOR EYE CONTACT, FAIR GROOMING AND HYGIENE. FALL PRECAUTION IN PLACE. PATIENT IN BED ASLEEP AT THIS TIME BREATHING REGULAR AND UNLABOURED.
[2020-05-21 07:28] VITALS: BP 112/62
[2020-05-21 17:27] VITALS: BP 127/66
--- NOTE | 2020-05-21 20:31 | NUR ---
PT A&OX4, VSS, DENIES SI/HI/NO HALLUCINATIONS. PATIENT STEADY ON FEET. PLEASANT MOOD. EATING WELL. NO SIGNS OF DISTRESS. WILL CONTINUE TO MONITOR.
[2020-05-21 20:38] VITALS: BP 127/65
--- NOTE | 2020-05-22 03:10 | NUR ---
PATIENT AOX3 FORGETFUL AND CONFUSED. PATIENT IS [place].PATIENT DENIED ALL PYCH ISSUES. PATIENT HAD A FLAT AFFECT, POOR EYE CONTACT, FAIR GROOMING AND HYGIENE. PATIENT IS UP AT ELVIA AND AMBULATES WITH STEADY GAITS. PATIENT IN BED ASLEEP AT THIS TIME BREATHING REGULAR AND UNLABOURED.
[2020-05-22 07:20] VITALS: BP 113/68
[2020-05-22 10:00] VITALS: BP 111/57
[2020-05-22 15:15] VITALS: BP 111/57
--- NOTE | 2020-05-22 16:18 | NUR ---
ASSUMED PATIENT CARE THIS AM. ASSESSMENT CHARTED. MED GIVEN PER MAR; PO WHOLE W NO ISSUES. PATIENT IS AWAKE BUT SLEEPY THIS AM. PATIENT IS [place]. PATIENT OPTED OUT OF EATING BREAKFAST THIS AM SO SHE COULD SLEEP. SON AMAYA CROSS CALLED AND SPOKE W PATIENT. PATIENT DENIES PAIN AND VOICES NO OTHER NEEDS AT THIS TIME. PATIENT IS UP AD ELVIA BUT FALL PRECAUTIONS ARE IN PLACE AT THIS TIME FOR SAFETY. WILL CONTINUE TO MONITOR
[2020-05-22 19:37] VITALS: BP 123/58
--- NOTE | 2020-05-23 03:59 | NUR ---
Pt. rested quietly during the night when checked on during frequent rounds. She is alert with some confusion. Pt. offers no c/o pain. She has been cooperative with cares.
[2020-05-23 07:41] VITALS: BP 101/45
--- NOTE | 2020-05-23 13:21 | NUR ---
ASSUMED PT CARE THIS AM. PT A&OX2, VITAL SIGNS STABLE. PT [place], BUT RESPONDS TO QUESTIONS. PT AMBULATORY TO THE RESTROOM. NO IV DUE TO COMING FROM [facility]. FALL PRECAUTIONS IN PLACE. FOOD GIVEN WITH PLASTIC UTENSILS. PT COMPLAINS TO STAFF ABOUT OTHER STAFF MEMBERS, OTHERWISE PLEASANT AND COOPERATIVE. WILL CONTINUE TO MONITOR.
[2020-05-23 15:41] VITALS: BP 123/57
[2020-05-23 21:04] VITALS: BP 120/45
--- NOTE | 2020-05-24 03:12 | NUR ---
VSS-AFEBRILE. RESTED WELL THROUGH NIGHT WITH FEW NEEDS. OOB AD ELVIA TO USE RESTROOM, STEADY ON FEET. NO C/O PAIN. CALLS APPROPRIATELY FOR ANY NEEDED ASSISTANCE.
[2020-05-24 08:00] VITALS: BP 122/50
[2020-05-24 13:57] VITALS: BP 122/50
[2020-05-24 15:34] VITALS: BP 122/50
--- NOTE | 2020-05-24 15:46 | NUR ---
CM HAD SPOKEN WITH CYNTHIA MARIE AT [facility]. SHE EMAILED CM A 51 PAGE ASSESSMENT THAT NEEDS TO BE COMPLETED WELL HAVING ORDERS FAXED. PHYSICIAN PUT IN DC ORDERS. CM TO FAX THEM TO THE COMMUNITY. THEY INDICATED THEY USE [facility] OR [facility]. CM TO SEND REFERRAL TO [facility]. CM ATTEMPTED TO ASK SOME OF THE ASSESSMENT QUESTIONS OF THE PT BUT SHE IS SO HARD OF HEARING THAT SHE HAD GREAT DIFFICULTY ANSWERING THEM. CM CALLED PT'S SON MARY AND LEFT VM. CM EMAILED PT'S HC ARNOLD ROD AND PROVIDED HIM UPDATE ABOUT HOPEFUL DC SUNDAY OF THIS WEEK. CM TO CONTINUE TO FOLLOW INDICATED WITH DC PLANNING.
--- NOTE | 2020-05-24 15:58 | NUR ---
ASSUMED PATIENT CARE AT APPROX. 0800. ASSESSMENT CHARTED. MEDICATION ADMINISTERED PER MAR. VITAL SIGNS ARE STABLE. PATIENT IS A [facility] PATIENT AND IS [place]. SHE HAS SOME CONFUSION. PATIENT WAS GIVEN THE FLU SHOT TODAY. HAS NO PSYCH OR BEHAVIORAL ISSUES AND IS EASILY REDIRECTED. PATIENT DENIES PAIN AND WALKS W A STEADY GAIT AND TOLERATES WELL. NO ISSUES WITH DIET. VOICES NO OTHER NEEDS AT THIS TIME. WILL CONTINUE TO MONITOR
--- NOTE | 2020-05-24 16:41 | NUR ---
TB TEST ADMINISTERED ON R FA; OUTLINED.
--- NOTE | 2020-05-24 18:51 | NUR ---
NURSING ASSESSMENT ADMENDED WITH MEJIA/ELEMENTARY SCHOOL REGISTRAR, I AGREE WITH NURSING NOTE DONE BY MEJIA/ELEMENTARY SCHOOL REGISTRAR.
[2020-05-24 19:15] VITALS: BP 123/61
[2020-05-24 22:36] VITALS: BP 123/61
--- NOTE | 2020-05-25 00:53 | NUR ---
PT AOX4 WITH INTERMITTENT CONFUSION AND FORGETFULNESS. PT HARD OF HEARING. PT DENIES PAIN AND SOB. PT TOLERATING PO INTAKE OF FLUIDS WITHOUT ISSUE. PT RESTING IN BED THROUGHOUT SHIFT, FREQUENT REPOSITIONING ENCOURAGED. PT NOTED TO SHIFT INDEPENDENTLY WHILE IN BED. PT ENCOURAGED TO NOTIFY STAFF FOR ALLL NEEDS. CALL LIGHT WITHIN REACH, BED ALARM ON, BED IN LOWEST POSITION, ROOM REMAINS NEAR NURSES STATION, FREQUENT MONITORING WILL CONTINUE.
[2020-05-25 07:15] VITALS: BP 100/53
[2020-05-25 08:43] VITALS: BP 100/53
[2020-05-25 14:51] VITALS: BP 122/50
[2020-05-25 15:09] VITALS: BP 121/59
--- NOTE | 2020-05-25 15:24 | NUR ---
CM COMPLETED ASSESSMENT QUESTIONAIRE AND FAXED BACK TO COMMUNITY. CM REFAXED ORDERS. [facility] CAN ACCEPT PT FOR PT AND OT SERVICES UPON [facility]. CM EMAILED PT'S HC ARNOLD ROD AND INDICATED THAT WE ARE ON TRACK FOR DC TOMORROW. CM SPOKE WITH PT'S SON MARY WHO LIVES LOCALLY AND HE INDICATED THAT HE CAN TRANSPORT PT TO [facility] TOMORROW BEFORE OR AFTER A LUNCH MEETING. CM TO FOLLOW INDICATED WITH DC PLANNING.
--- NOTE | 2020-05-25 18:04 | NUR ---
ASSUMED CARE OF PATIENT AT 0700. ASSESSMENT CHARTED. MEDICATION GIVEN PER MAR. VSS. PATIENT IS A [facility] PATIENT WAITING FOR PLACEMENT. SHE IS PLEASANTLY CONFUSED AND FORGETFUL. PATIENT GETS UP INDEPENDENTLY BUT IS ON ELOPEMENT PRECAUTIONS D/T HER [facility] ADMITTING DIAGNOSIS. PATIENTS APPETITE IS ADEQUATE. PATIENT DENIES PAIN. NO PSYCH ISSUES NOTED THIS SHIFT. FALL PRECAUTIONS IN PLACE. WILL CONTINUE TO MONITOR
[2020-05-25 19:05] VITALS: BP 138/70
--- NOTE | 2020-05-25 20:53 | NUR ---
I AGREE WITH NURSING ASSESSMENT AND NUSRING NOTE DONE BY MEJIA/AIRB[employer]NE WEAPONS TECHNICAL MANAGER.
--- NOTE | 2020-05-26 03:41 | NUR ---
ASSUMED CARE OF PT AT 1900. PT IS A/O X2 AND IS UP AD ELVIA. PT DENIES ANY PAIN OR DISCOMFORT. IS FORGETFUL AND CONFUSED ABOUT WHERE SHE IS AND TIME. NO BEHAVIORAL OUTBURTS OF ANY KIND. PT IS PLEASANT AND COOPERATIVE. VSS. ROOM AIR. MEDSURG. STATED SHE HAD TWO SMALL BOWEL MOVEMENTS YESTERDAY. NO SKIN ISSUES. CONTINUES PROGRESSING TOWARDS PLAN OF CARE GOALS. AT THIS TIME, PT IS LYING IN HER BED AND APPEARS TO BE SLEEPING. CALL LIGHT IS WITHIN REACH. WILL CONTINUE TO MONITOR.
[2020-05-26 07:30] VITALS: BP 122/53
[2020-05-26 09:12] VITALS: BP 122/50
--- NOTE | 2020-05-26 10:18 | NUR ---
PT IS TO DISCHARGE TO [facility] THIS DAY. PT IS TO HAVE [facility] PT AND OT. PT'S SON/DPVIDYA ROD IS AWARE AND AGREEABLE WITH DC THIS DAY. PT'S SON MARY IS TO PROVIDE TRANSPORT AROUND 1500. CHART COPY ORDERED. ORDERS FAXED TO COMM[facility]ITY AND TO [facility]. NO OTHER CM INTERVENTION INDICATED. CASE CLOSED.
--- NOTE | 2020-05-26 11:45 | NUR ---
Assumed pt care at 7am.Assessment completed.vss.Pt up adlib in the room and hallways with steady gait.Pt tolerated meds and food.Dr Ramirez here,dc order noted.Pt will be dc home with son at 1500 today.No verbal c/o. Will continue to monitor.
[2020-05-26 11:48] VITALS: BP 122/50
--- NOTE | 2020-05-26 14:30 | NUR ---
[facility]. PT'S SON MARY IS TO PROVIDE TRANSPORT AROUND 1500. CHART COPY ORDERED. ORDERS, ASSESSMENT, AND AL ORDERS COMPLETED AND FAXED. PT. ARNOLD/MARCEL, AND SON MARY ALL AWARE AND AGREEABLE WITH DC TODAY. CM SPOKE WITH MARCEL VIA PHONE THIS AM ALSO. ORDERS SENT TO [facility] AND THEY WILL SEE PT TOMORROW. NO OTHER CM INTERVENTION INDICATED. CASE CLOSED.
== END 2020-05-26 15:37 | DRG 689 ==
LOC: 4W 20:18
PROVIDERS: ADMIT Hospitalist; ATTEND Hospitalist
DX: N39.0 Urinary tract infection, site not specified (principal); G93.41 Metabolic encephalopathy; F02.81 Dementia in other diseases classified elsewhere, unspecified severity, with behavioral disturbance; F01.51 Vascular dementia, unspecified severity, with behavioral disturbance; Z20.828 Contact with and (suspected) exposure to other viral communicable diseases; I10 Essential (primary) hypertension; E78.5 Hyperlipidemia, unspecified; I25.10 Atherosclerotic heart disease of native coronary artery without angina pectoris; E78.00 Pure hypercholesterolemia, unspecified; E03.9 Hypothyroidism, unspecified; Z60.2 Problems related to living alone; E55.9 Vitamin D deficiency, unspecified; G30.9 Alzheimer's disease, unspecified; F29 Unspecified psychosis not due to a substance or known physiological condition; Z95.5 Presence of coronary angioplasty implant and graft; Z85.89 Personal history of malignant neoplasm of other organs and systems; Z90.49 Acquired absence of other specified parts of digestive tract; Z90.710 Acquired absence of both cervix and uterus; Z23 Encounter for immunization
CPT/HCPCS: 10040